=== PATIENT | male | born 1995 | race Caucasian/White ===

== ENCOUNTER 2019-05-21 00:06 | Emergency (ER) | payer OTHER, SELFPAY ==
[2019-05-21 00:12] VITALS: BP 148/97; PULSE 89; RESP 18; TEMP 36.7; O2SAT 97; BMI 20.3
--- NOTE | 2019-05-21 00:50 | ED_ITS ---
HPI - General Adult General: Chief complaint: General Medical Stated complaint: BLOOD EXPOSURE Time Seen by Provider: 05/21/19 00:09 History of Present Illness: HPI narrative: Needlestick right thumb at work tonight in ICU. Here for needlestick protocol complaint: needlestick Review of Systems General: Reports: 10 or more systems reviewed and unremarkable except in HPI and below (Needlestick right thumb) PFSH ED PFSH: Statuses (acute, chronic, etc) shown below reflect problem list status as previously entered and may not be historically accurate Social History Smoking and tobacco status: never smoked Physical Exam Narrative: EXAM NARRATIVE: Wound right thumb hard to visualize has been clean with soap and water Course Vital Signs: Vital signs: Vital Signs Temperature 98.1 F 05/21/19 00:12 Pulse Rate 89 05/21/19 00:12 Respiratory Rate 18 05/21/19 00:12 Blood Pressure 148/97 05/21/19 00:12 Pulse Oximetry 97 05/21/19 00:12 Discharge Plan Discharge Patient Disposition: Home, Self-Care Clinical Impression: Accidental hypodermic needlestick injury Condition: Stable Discharge Orders: Discharge Order (Routine); Ordered 05/21/19 Ordered By: Jose Mendez Referrals: Lizette Rodríguez MD [Primary Care Provider] - Discharge Diet: Usual diet Discharge Activity: Resume usual activity Patient Instructions: Needle Stick Injuries (ED) Activity Restrictions/Additional Instructions: Patient discharged back to work follow need to start needlestick protocol guidelines. Follow-up with employee health tomorrow patient chose not to do antiviral medication Coding Level of Care Code ED Brim Pouncing Machine Operator for Sudha Clarke
[2019-05-21 02:39] LABS: HIV 1 & 2 Antibody Non-Reactive (Non-Reactiv); HIV 1 & 2 Antigen Non-Reactive (Non-Reactiv)
[2019-05-21 17:07] LABS: Hepatitis A Antibody IgM. Non-Reactive (Nonreactive); Hepatitis B Core IgM Non-Reactive (Nonreactive); Hepatitis B Surface Antigen. Non-Reactive (Nonreactive); Hepatitis C Virus Antibody Non-Reactive (Nonreactive)
== END 2019-05-21 01:06 | disposition home or self-care (01) ==
PROVIDERS: Emergency Provider Nurse Practitioner Family; Family Provider Family Medicine; PCP Family Medicine
DX: S61.031A Puncture wound without foreign body of right thumb without damage to nail, initial encounter (principal); W46.0XXA Contact with hypodermic needle, initial encounter; Y92.239 Unspecified place in hospital as the place of occurrence of the external cause; Y99.0 Civilian activity done for income or pay
CPT/HCPCS: 80074; 99281

== ENCOUNTER → 2019-08-18 12:07 | Outpatient (BNVA) | payer OTHER, SELFPAY | PROVIDERS: Family Provider Family Medicine; PCP Family Medicine; Referring Provider Family Medicine; Visit Provider Family Medicine | DX: Z20.5 Contact with and (suspected) exposure to viral hepatitis (principal) | CPT/HCPCS: 80053; 86704; 86705; 86706; 87340 ==

== ENCOUNTER → 2020-01-06 11:32 | Outpatient (BNVA) | payer BC, SELFPAY | PROVIDERS: Family Provider Family Medicine; PCP Family Medicine; Visit Provider Registered Nurse | DX: Z72.52 High risk homosexual behavior (principal); K21.9 Gastro-esophageal reflux disease without esophagitis; A60.02 Herpesviral infection of other male genital organs; N48.9 Disorder of penis, unspecified | CPT/HCPCS: 87530 ==

== ENCOUNTER → 2020-01-13 15:33 | Outpatient (BNVA) | payer BC, SELFPAY | PROVIDERS: Family Provider Family Medicine; PCP Family Medicine | DX: Z51.81 Encounter for therapeutic drug level monitoring (principal); N48.5 Ulcer of penis | CPT/HCPCS: 80048; 86592 ==

== ENCOUNTER → 2020-03-21 10:45 | Outpatient (BNVA) | payer BC, SELFPAY | PROVIDERS: Family Provider Family Medicine; PCP Family Medicine; Visit Provider Registered Nurse | DX: Z20.2 Contact with and (suspected) exposure to infections with a predominantly sexual mode of transmission (principal); Z72.52 High risk homosexual behavior; Z91.89 Other specified personal risk factors, not elsewhere classified | CPT/HCPCS: 86592; 87806 ==

== ENCOUNTER → 2020-05-25 08:53 | Outpatient (BNVA) | payer BC, SELFPAY | PROVIDERS: Family Provider Family Medicine; PCP Family Medicine; Visit Provider Registered Nurse | DX: R30.0 Dysuria (principal) | CPT/HCPCS: 81000; 87086 ==

== ENCOUNTER 2020-12-26 11:43 | Outpatient (CLI) | payer BC, SELFPAY ==
--- NOTE | 2020-12-28 08:02 | ONC CON_ITS ---
Dr. Arita New Patient Note Patient: Lion Nj Unit #: [id number]: 1995 Dicatated By: Babak Arita M.D.Date of Visit: Dec 26, 2020 Onc MED New Patient/Consult Referring Physician: Tru Mclean Chief Complaint: Ependymoma. 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 He had presented with pain in the right posterior neck area and headache, beginning in May. In the early part of October he had presented to the emergency room with acute onset of nausea/vomiting. He was found on CT to have a large frontal lobe mass. His brain MRI showed a mass within the region of the right frontal horn which appeared to be arising from the intraventricular space, though with some associated invasion into the adjacent brain parenchyma. The mass measured 4.6 x 2.8 x 4 cm. There was associated vasogenic edema within the adjacent right frontal white matter. CT of the cervical spine showed no significant abnormality. On 10/31/2020 he underwent craniotomy with resection of the right frontal intraventricular tumor. Operative findings included an encapsulated mass within the right frontal horn of the lateral ventricle which was noted to extend down through the foramen of Monro. It was adherent loosely to the surrounding normal-appearing neural tissue. All visible abnormal tissue was removed. Pathology showed anaplastic supratentorial ependymoma, WH0 grade III. The tumor was noted to be ZFTA-RELA fusion-positive. 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 His postoperative course was complicated by left lower extremity deep vein thrombosis, for which he began anticoagulation with apixaban. He was subsequently transferred to rehab, where he had persistent headaches, ultimately requiring placement of ventriculoperitoneal shunt on 11/26/2020. He was discharged to rehab on 12/01/2020 and subsequently discharged home. He has been referred for postoperative radiation. At this point he continues to have limited activity, though he is able to ambulate with a walker or quad cane. His ECOG score is 3. He has good appetite. He does not have fever or night sweats. He initially had experienced some left lateral visual field loss, but that has improved. He has not had sore throat or difficulty swallowing. He has no shortness of breath, cough, or chest pain. He currently has no GI or complaints. He still has some pain in the right occipital/posterior neck area. He has no other joint or bone pain. He otherwise is not having headache now. He does not complain of dizziness. He still has paralysis of the left arm, but he does have some function with his left leg. Past Medical History: His medical history includes anxiety/depression, gastroesophageal reflux disease, and left lower extremity deep vein thrombosis. Past Surgical History: He underwent craniotomy with resection of right frontal lobe tumor on 10/31/2020, and he underwent right parietal ventriculoperitoneal shunt placement on 11/25/2020. Medications: Cholecalciferol 1 (10,000 Units) Tablet Oral daily, Colace Clear 1 Each (of 50 mg) Capsule Oral b.i.d., Eliquis 1 Tablet (of 5 mg) Oral b.i.d., Florastor 1 (250 mg) Capsule Oral daily, Keppra 1 Each (of 500 mg) Tablet Oral b.i.d., Mirtazapine 1 (7.5 mg) Tablet Oral at bedtime, Pantoprazole Sodium 2 Each (of 40 Tablet) Tablet, enteric coated Oral daily Allergies: No Known Allergies. Social History: Mr. Nj is single. He is employed as a registered nurse. He is a non-smoker. He does not drink alcohol. Family History: Both parents are living and in good health. Four sisters also are in good health. Review Of Symptoms: Constitutional - His energy is not great. He has limited activity. He is able to walk with assistance. His appetite is good and his weight is stable. He has no fever or night sweats. ECOG score is 3, Eyes - He had lateral field visual on the left, but it is improving, ENMT - No hearing loss or tinnitus. No sinus congestion/drainage. No mouth sores. No sore throat or difficulty swallowing, Hematologic/Lymphatic - No abnormal bruising or bleeding, Respiratory - No shortness of breath. No cough. No pleuritic pain or hemoptysis, Cardiovascular - No angina pain. No palpitations, Gastrointestinal - No nausea or vomiting. His acid reflux is adequately managed with medication. No diarrhea or constipation. No blood in the stool or black stools, Genitourinary (M) - No dysuria or hematuria. No urinary frequency. No urgency or incontinence, Musculoskeletal - He still has some pain in the right posterior neck area. No other joint or bone pain, Integumentary - No skin rash or other skin changes, Neurologic - His headaches are better. He does not complain of dizziness. He has no numbness/paresthesia. He has persistent left arm paralysis and there is some weakness in the left leg, Psychiatric - No anxiety. He does have some depression. He has difficulty sleeping. Vital Signs: Performed on Dec 26, 2020 12:24: 7, 4, 21.62, 1.93 sq.m, 72 in, 99 %, 110 /min (HIGH), 18 /min, 114/83 mm(hg), 99.7 F (HIGH), and 159.4 lbs (HIGH). Physical Examination: Constitutional - He appears to be in good general health, Eyes - Sclerae nonicteric. Conjunctivae clear, ENMT - No lesions noted in the oral cavity, Neck - No mass or thyromegaly, Hematologic/Lymphatic - No cervical, clavicular, or axillary adenopathy, Respiratory - Lungs are clear with good air movement bilaterally, Cardiovascular - Heart rhythm is regular. There is a mild tachycardia. There is no murmur, gallop, or rub noted, Abdomen - Soft. Liver and spleen are not enlarged. There is no abdominal mass or ascites noted and there is no inguinal adenopathy, Back/Spine - No spine or CVA tenderness noted, Extremities - No edema. There is no calf swelling. Dorsalis pedis pulses are palpable bilaterally, Integumentary - No rashes. No suspicious skin lesions noted, Neurologic - There is complete paralysis of the left arm. There is some weakness in the left leg. Problem List: 1. 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 2. Postoperative left lower extremity deep vein thrombosis. 3. GERD. 4. Anxiety/depression. Problems Addressed with this Encounter and Plan: 1. 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 He underwent craniotomy with complete gross resection of tumor on 10/30/2020. His postoperative MRI on 11/03/2020 showed mild residual enhancement along the anterior epididymal lining of the frontal horn of the lateral ventricle. With that finding, he has been recommended undergo postoperative radiation. Per NCCN guidelines, he will first need to complete staging with MRI of the spine. In the absence of any evidence of other involvement, he will then see Dr. Sin for the radiation. 2. His postoperative course was complicated by left lower extremity deep vein thrombosis. He is currently on anticoagulation with apixaban. It is uncertain to what extent the thrombosis may have been due to hypercoagulability associated with the tumor, as that would potentially impact recommendations for the duration of his anticoagulation. At a minimum, though, he will have 3-6 months of anticoagulation with full dose apixaban. Signed By: Babak Arita M.D. <<Signature on File>>
== END 2020-12-26 11:44 | disposition home or self-care (01) ==
LOC: ONCMED 11:49
PROVIDERS: PCP Registered Nurse; Visit Provider Internal Medicine Hematology & Oncology
DX: C71.5 Malignant neoplasm of cerebral ventricle (principal); I82.402 Acute embolism and thrombosis of unspecified deep veins of left lower extremity; K21.9 Gastro-esophageal reflux disease without esophagitis; F41.9 Anxiety disorder, unspecified; F32.9 Major depressive disorder, single episode, unspecified; Z79.01 Long term (current) use of anticoagulants; Z79.899 Other long term (current) drug therapy
CPT/HCPCS: 99205

== ENCOUNTER 2021-01-08 14:16 | Outpatient (CLI) | payer BC, SELFPAY ==
--- NOTE | 2021-01-08 14:19 | MR_ITS ---
WS: [id number] MRI CERVICAL SPINE with and without contrast. HISTORY: EPENDYMOMA COMPARISON: CT cervical spine 10/12/2020 Technique: Multiplanar, multisequence pre and post imaging of the cervical spine. Normal cervical alignment with no compression fracture or significant disc space narrowing. Signal within the cervical cord is normal. Visualized posterior fossa is unremarkable. Craniocervical junction, C1 and C2 relationship, odontoid process and soft tissues are normal. No enhancing masses throughout the cervical spine. C2-C3: Normal. C3-C4: Normal. C4-C5: Normal. C5-C6: Normal. C6-C7: Normal. C7-T1: Normal. Paraspinal soft tissue are normal. MR/MR cervical spine wo/w [id number] IMPRESSION: Normal MRI C-spine with and without contrast.
--- NOTE | 2021-01-08 14:22 | MR_ITS ---
WS: [id number] MRI THORACIC SPINE with and without contrast. HISTORY: EPENDYMOMA COMPARISON: None available. TECHNIQUE: Multiplanar sequences are performed in sagittal and axial planes. Study performed with and without contrast. Normal thoracic alignment. Vertebral body heights and disc space heights are normal. No signal abnorm alities in the cord or abnormal enhancement. No cord atrophy or enlargement. No epidural enhancement or cord enhancement. T1-2: Normal. T2-3: Normal. T3-4: Normal. T4-5: Tiny RIGHT paracentral disc protrusion. T5-6: Normal. T6-7: Normal. T7-8: Normal. T8-9: Normal. T9-10: Normal. T10-11: Normal. T11-12: Normal. MR/MR thoracic spine wo/w [id number] IMPRESSION: Negative MRI of thoracic spine with and without contrast. No evidence for metas tatic disease.
[2021-01-08] MEDS: gadobenate dimeglumine 20 mL vial IV (15:43)
== END 2021-01-08 14:17 | disposition home or self-care (01) ==
LOC: RADWPI 14:18
PROVIDERS: PCP Registered Nurse; Visit Provider Internal Medicine Medical Oncology
DX: C71.9 Malignant neoplasm of brain, unspecified (principal)
CPT/HCPCS: 72156; 72157; A9577

== ENCOUNTER 2021-01-10 14:18 | Outpatient (CLI) | payer BC, SELFPAY ==
--- NOTE | 2021-01-10 14:21 | MR_ITS ---
WS: [id number] MRI LUMBAR SPINE WITH AND WITHOUT CONTRAST. HISTORY: EPENDYMOMA COMPARISON: None available. TECHNIQUE: Sagittal and axial multisequence imaging is submitted. Sagittal and axial T1 fat sat seque nces post-MultiHance 17 cc IV. Mild curvature cervical thoracic spines. Mild straightening of the normal thoracic lordosis. Posterior alignment is normal. No signal abnormality within the cord or the conus. There is no enhanc ing within the cord or drop metastasis. Disc spaces and vertebral body heights are well-preserved. Conus terminates normally at L1-2 disc level. L1-L2: Normal. L2-L3: Normal. L3-L4: Normal. L4-L5: Mild ligamentum flavum hypertrophy and facet arthritis. L5-S1: Shallow central disc protrusion and small osteophytes. No stenosis. No contact on the nerve ro ots. Postcontrast sequences are negative for metastatic disease or additional ependymal tumors. MR/MR lumbar spine wo/w con [id number] IMPRESSION: Normal MRI lumbar spine. No enhancing lesions or metastatic lesions within the spine or thecal sac.
== END 2021-01-10 14:19 | disposition home or self-care (01) ==
LOC: RADSHAW 14:20
PROVIDERS: PCP Registered Nurse; Visit Provider Internal Medicine Medical Oncology
DX: C71.1 Malignant neoplasm of frontal lobe (principal)
CPT/HCPCS: 72158

== ENCOUNTER 2021-02-08 06:32 | Outpatient (RCR) | payer BC, SELFPAY ==
--- NOTE | 2021-01-11 | CT_ITS ---
Radiation Therapy Planning CT images; total exam DLP: 535.09 mGy-cm MTDD
--- NOTE | 2021-01-11 17:44 | N.ONRAD NP_ITS ---
Radiation Oncology New Patient Visit Patient: Lion Nj MR#: [id number] : 1995> Age: 25> Sex: Male> Dictated by: Dr. Kulwant Contreras Date of Service: 01/11/2021 Referring Physician(s) : Jairo Tripp Diagnosis: C71.1 - malignant neoplasm of frontal lobe, Diagnosed 12/26/2020 (active). Brain, right frontal intraventricular neoplasm, anaplastic ependymoma, WHO grade 3, Z FTA fusion-positive Radiotherapy to date: Summary > No prior radiation therapy. 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 He developed right posterior neck pain and posterior headaches in May of this year. Over time his symptoms progressed and in October he developed acute nausea and vomiting. Brain imaging revealed a mass in the frontal horn of the right lateral ventricle with probable invasion into the adjacent brain parenchyma. The mass was measured at 4.6 x 2.8 x 4 cm. He was referred to neurosurgery at [facility]. Dr. Mclean operated on him on 10/31/2020. During surgery the anterior horn was entered and tumor was clearly visible in the ventricle with a well-formed capsule. A pseudocapsule type of margin was noted laterally between the capsule of the tumor and the lateral wall of the ventricle. Medially there was no distinct border but the tumor tissue appeared abnormal in comparison to the adjacent neural tissue. Debulking was performed. Posteriorly the tumor was connected to a vascular structure at the posterior border of the foramen of Miles. That was resected and a portion of tumor was actually pulled out of the foramen of Miles. The internal wall of the third ventricle appeared normal. Surgery was tolerated well though Mr. Nj did have some visual symptoms and a left hemiparesis following surgery. The vision symptoms have resolved. He is getting physical therapy and the left hemiparesis is improving. He is ambulatory with a cane but still has little function of the left upper extremity. He did have to be taken back to surgery for placement of a ventriculoperitoneal shunt on 11/25/2020. That procedure was uncomplicated and Mr. Nj is now at home, continuing to undergo physical therapy. Mr. Nj has seen Dr. Arita. He is referred for evaluation and recommendations with regard to postoperative radiation. Current Medications: Acetaminophen, cholecalciferol, colace Clear, eliquis, florastor, hYDROcodone-Acetaminophen, keppra, mirtazapine, pantoprazole Sodium. Allergies: No Known Allergies Medical History: Anxiety/depression, gastroesophageal reflux disease, left lower extremity deep vein thrombosis. No history of collagen vascular disease. No previous radiation therapy. Surgical History: Craniotomy with resection of right frontal lobe tumor on 10/31/2020 and right parietal ventriculoperitoneal shunt placement on 11/25/2020. Family History: Father is alive. Mother is alive. Sister is alive. Sister is alive. Sister is alive. Sister is alive. Both parents are living and in good health. Four sisters also are in good health. Social History: Last screened on 01/11/2021 - Never smoked. Last screened on 01/11/2021 - Never drank. Current Complaints / Review of Systems: . Neurologic: Mild headaches, no nausea. He has severe weakness of the left upper extremity. He has mild weakness of the left leg. Eyes: He had some visual deficits following surgery but they have resolved. He wears glasses. No vision complaints. GI: No problems with chewing, swallowing, digestion, or bowel movements. Pulmonary: no trouble with breathing, cough, hemoptysis or chest discomfort. Cardiovascular: left leg DVT following surgery. He is on anticoagulation. No chest pain or cardiac complaints. : No dysuria, hematuria, pyuria, or difficulty with emptying the bladder. Musculoskeletal: No extremity or joint pain. Vital Signs: Performed on 01/11/2021 10:43 AM BMI - 21.944 kg/m2, Height - 72.00 in, Weight - 161.8 lbs, Temperature - 97.5 f, Pulse - 99 /min, Respiration - 18 /min, O2 Sat - 97 %, Pain - 3 and BP - 138/ 90 mm(hg). Physical Exam: General: Alert, oriented, no acute distress. Neurologic: No deficits of speech, coherence, critical thinking, or memory. He has normal cranial nerve function except for shoulder shrug on the left. In terms of the extremities, he has about a 50% loss of strength in the left lower extremity. On the left he does have difficulty with dorsiflexion and plantar flexion of the foot. Right lower extremity normal. The right upper extremity is normal in strength. The left upper extremity is almost completely nonfunctional. Certainly he can do nothing with the hand and has very little motion at the elbow. He walks with a cane and is stable. Lungs: Clear to auscultation with no rales rhonchi or wheezes. Heart: Regular rhythm. No murmur gallop or rub. Abdomen: No distention. No organomegaly or mass or tenderness. Bowel sounds normal. Extremities: See neurologic exam above. The left lower extremity which had a DVT is normal and nontender to palpation. There is no edema. Performance Status: 3 - Capable of only limited self-care, confined to bed or chair more than 50% of waking hours. (ECOG) Pathology: Primary, c71.1 - malignant neoplasm of frontal lobe, Diagnosed 12/26/2020 (active). Lab: Imaging: See HPI Impression: Mr. Nj is postop gross resection of a grade 3 ependymoma. His risk of recurrence without additional treatment is high. He is aware of that. We discussed the use of postoperative radiation to reduce the risk of recurrence. I reviewed a 6-1/2-week course of radiation, side effects, and possible complications. I discussed acute effects such as fatigue, skin reaction, hair loss, headaches, and nausea. We discussed the risk of neurologic injury. I pointed out that the treatment field will approach the area of the optic chiasm and optic nerves as well as the brainstem. I told him those structures will be contoured and we will limit the dose of radiation to them. In spite of those efforts, I did discuss that there is a risk of brain necrosis that could result in severe neurologic injury. Mr. Nj wishes to proceed with postoperative radiation as recommended. Plan: Simulation performed. His simulation CT was fused with his postoperative MR. The CT actually was adequate for the postoperative status of the brain. It was elected to fuse preop images with the simulation CT for contouring. Both the axial T1 and axial T2 flair images were reviewed. The axial T1 images were selected to be fused and used to assist with contouring. Signed by: 01/11/2021 5:43:05 PM <<Signature on File>> Time spent with patient: CPT Code: CPT Code:
--- NOTE | 2021-01-23 13:41 | ONCRAD TMN_ITS ---
Radiation Oncology Treatment Management Note Patient Name: Lion Nj Date of : 1995 Date of Service: 01/23/2021 Attending Physician: Rustam Sin M.D. 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 A right frontal craniotomy with a left ventriculostomy was performed on October 31, 2020. A gross total resection was accomplished. Post-operative MRI demonstrated persistent enhancement of the ependymal lining of the anterior margin of the frontal horn. The patient has received 1.8 Gy of a prescribed 59.8 Loja with an IMRT plan using a step and shoot treatment technique. Upon review of systems, he denied any neurological complaints. On physical examination, the patient weighed 165 lbs. His temperature was 98 ???F with a blood pressure of 131/98 mmHg. His pulse was 85 bpm and his respiratory rate was 18. Cranial nerves were intact. Continue post-operative partial brain radiotherapy as prescribed. Signed by: Dr. Rustam Sin 01/23/2021 1:40:15 PM
--- NOTE | 2021-01-30 13:31 | ONCRAD TMN_ITS ---
Radiation Oncology Treatment Management Note Patient Name: Lion Nj Date of : 1995 Date of Service: 01/30/2021 Attending Physician: Rustam Sin M.D. 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 A right frontal craniotomy with a left ventriculostomy was performed on October 31, 2020. A gross total resection was accomplished. Post-operative MRI demonstrated persistent enhancement of the ependymal lining of the anterior margin of the frontal horn. The patient has received 12.6 Gy of a prescribed 59.4 Loja with an IMRT plan using a step and shoot treatment technique. Upon review of systems, he denied new neurological complaints. On physical examination, the patient weighed 166 lbs. His temperature was 97.9 ???F with a blood pressure of 138/93 mmHg. His pulse was 72 bpm and his respiratory rate was 18. Cranial nerves were intact. Continue post-operative partial brain radiotherapy as planned. Signed by: Dr. Rustam Sin 01/30/2021 1:29:35 PM
--- NOTE | 2021-02-06 13:51 | ONCRAD TMN_ITS ---
Radiation Oncology Treatment Management Note Patient Name: Lion Nj Date of : 1995 Date of Service: 02/06/2021 Attending Physician: Rustam Sin M.D. 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 A right frontal craniotomy with a left ventriculostomy was performed on October 31, 2020. A gross total resection was accomplished. Post-operative MRI demonstrated persistent enhancement of the ependymal lining of the anterior margin of the frontal horn. The patient has received 21.6 Gy of a prescribed 59.4 Loja with an IMRT plan using a step and shoot treatment technique. Upon review of systems, he reported persistent nausea. On physical examination, the patient weighed 164 lbs. His temperature was 97.4 ???F with a blood pressure of 136/101 mmHg. His pulse was 80 bpm and his respiratory rate was 18. Cranial nerves were intact. Continue post-operative partial brain radiotherapy as prescribed. I will prescribe 4 mg Decadron for potential cerebral edema. Signed by: Dr. Rustam Sin 02/06/2021 1:49:10 PM
== END 2021-02-08 23:59 | disposition home or self-care (01) ==
LOC: ONCMED 06:32
PROVIDERS: PCP Registered Nurse; Referring Provider Internal Medicine Medical Oncology; Visit Provider Radiology Radiation Oncology
DX: Z51.0 Encounter for antineoplastic radiation therapy (principal); C71.1 Malignant neoplasm of frontal lobe; Z79.899 Other long term (current) drug therapy
CPT/HCPCS: 77300; 77301; 77334; 77336; 77338; 77386; 99205

== ENCOUNTER 2021-03-09 06:20 | Outpatient (RCR) | payer BC, SELFPAY ==
--- NOTE | 2021-02-13 13:35 | ONCRAD TMN_ITS ---
Radiation Oncology Treatment Management Note Patient Name: Lion Nj Date of : 1995 Date of Service: 02/13/2021 Attending Physician: Rustam Sin M.D. 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 A right frontal craniotomy with a left ventriculostomy was performed on October 31, 2020. A gross total resection was accomplished. Post-operative MRI demonstrated persistent enhancement of the ependymal lining of the anterior margin of the frontal horn. The patient has received 30.6 Gy of a prescribed 59.4 Loja with an IMRT plan using a step and shoot treatment technique. Upon review of systems, he reported improvement in the nausea. On physical examination, the patient weighed 167 lbs. His temperature was 97.6 ???F with a blood pressure of 143/101 mmHg. His pulse was 81 bpm and his respiratory rate was 18. Cranial nerves were intact. Continue post-operative partial brain radiotherapy as planned. I will decrease the Decadron dose to 2 mg daily. Signed by: Dr. Rustam Sin 02/13/2021 1:34:07 PM
--- NOTE | 2021-02-20 13:34 | ONCRAD TMN_ITS ---
Radiation Oncology Treatment Management Note Patient Name: Lion Nj Date of : 1995 Date of Service: 02/20/2021 Attending Physician: Rustam Sin M.D. 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 A right frontal craniotomy with a left ventriculostomy was performed on October 31, 2020. A gross total resection was accomplished. Post-operative MRI demonstrated persistent enhancement of the ependymal lining of the anterior margin of the frontal horn. The patient has received 39.6 Gy of a prescribed 59.4 Loja with an IMRT plan using a step and shoot treatment technique. Upon review of systems, he denied new neurological symptoms. On physical examination, the patient weighed 172 lbs. His temperature was 98.9 ???F with a blood pressure of 131/90 mmHg. His pulse was 78 bpm and his respiratory rate was 18. Cranial nerves were intact. Continue post-operative partial brain radiotherapy as prescribed. Signed by: Dr. Rustam Sin 02/20/2021 1:56:36 PM
--- NOTE | 2021-02-27 13:40 | ONCRAD TMN_ITS ---
Radiation Oncology Treatment Management Note Patient Name: Lion Nj Date of : 1995 Date of Service: 02/27/2021 Attending Physician: Rustam Sin M.D. 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 A right frontal craniotomy with a left ventriculostomy was performed on October 31, 2020. A gross total resection was accomplished. Post-operative MRI demonstrated persistent enhancement of the ependymal lining of the anterior margin of the frontal horn. The patient has received 45 Gy of a prescribed 59.4 Loja with an IMRT plan using a step and shoot treatment technique. Upon review of systems, he denied new neurological symptoms. On physical examination, the patient weighed 175 lbs. His temperature was 98.9 ???F and the blood pressure was 139/98 mmHg. His pulse was 78 bpm and his respiratory rate was 18. Cranial nerves were intact. Continue post-operative partial brain radiotherapy as planned. Signed by: Dr. Rustam Sin 02/27/2021 1:39:43 PM
--- NOTE | 2021-03-06 13:42 | ONCRAD TMN_ITS ---
Radiation Oncology Treatment Management Note Patient Name: Lion Nj Date of : 1995 Date of Service: 03/06/2021 Attending Physician: Rustam Sin M.D. 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 A right frontal craniotomy with a left ventriculostomy was performed on October 31, 2020. A gross total resection was accomplished. Post-operative MRI demonstrated persistent enhancement of the ependymal lining of the anterior margin of the frontal horn. The patient has received 54 Gy of a prescribed 59.4 Loja with an IMRT plan using a step and shoot treatment technique. Upon review of systems, he denied new neurological symptoms. On physical examination, the patient weighed 175 lbs. His temperature was 98.9 ???F and the blood pressure was 133/97 mmHg. His pulse was 73 bpm and his respiratory rate was 18. Cranial nerves were intact. Continue post-operative partial brain radiotherapy as prescribed. Signed by: Dr. Rustam Sin 03/06/2021 1:40:36 PM
--- NOTE | 2021-03-09 11:58 | N.ONRD TS_ITS ---
Radiation OncologyTreatment Summary Patient Name: Lion Nj Date of : 1995 Date of Service: 03/09/2021 Attending Physician: Rustam Sin M.D. 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 A right frontal craniotomy with a left ventriculostomy was performed on October 31, 2020. A gross total resection was accomplished. Post-operative MRI demonstrated persistent enhancement of the ependymal lining of the anterior margin of the frontal horn. Cranial radiotherapy was administered between the dates of January 22, 2021 through March 09, 2021. A prescribed dose of 59.4 Gy was delivered in 33 fractions encompassing 47 elapsed days. The post-operative cavity (including areas of enhancement and edema as delineated by MR) was treated with an intensity modulated radiotherapy plan with a step and shoot treatment technique. The plan required seven coplanar moffett and two non-coplanar ports. Gantry angles of 80???, 120???, 150???, 200???, 230???, 260???, and 290??? were designed with a collimator rotation spanning 0??? to 350???. The field sizes differed between a minimum of 9.5 cm x 8.6 cm to a maximum of 12.1 cm x 8.8 cm. The planned SSDs measured between 88.1 cm to 93.5 cm. The delivered monitor units for the referenced gantry angles were 102 MU, 91 MU, 100 MU, 83 MU, 80 MU, 97 MU, and 107 MU. An additional two non-coplanar ports were designed with gantry angles of 270??? and 310??? with a collimator rotation of 0???, A couch angle of 90??? was implemented. The non-coplanar portal moffett measured 11 cm x 7.8 cm and 11.5 cm x 7.8 cm with SSDs of 92.8 cm and 93.1 cm. The administered monitor units for the non-coplanar ports were 115 MU and 121 MU. All treatments were performed with the Pixifly linear accelerator and an isocentric technique. The dose was calculated by Anisotropic Analytic Algorithm. A photon energy of 6 MV was prescribed with the plan calculated to deliver 100% of the prescription dose to 95% of the planning target volume. The flake drier physician approved the plan. Signed by: Dr. Rustam Sin 03/09/2021 11:57:21 AM
== END 2021-03-11 23:59 | disposition home or self-care (01) ==
LOC: ONCMED 06:20
PROVIDERS: PCP Registered Nurse; Referring Provider Internal Medicine Medical Oncology; Visit Provider Radiology Radiation Oncology
DX: Z51.0 Encounter for antineoplastic radiation therapy (principal); C71.1 Malignant neoplasm of frontal lobe
CPT/HCPCS: 77014; 77336; 77386; 77427

== ENCOUNTER 2021-03-12 12:52 | Outpatient (CLI) | payer BC, SELFPAY ==
--- NOTE | 2021-03-12 12:59 | MRR_ITS ---
PROCEDURE INFORMATION: Exam: MR Head Without Contrast Exam date and time: 03/12/2021 12:59 PM Age: 25 years old Clinical indication: Device placement; Other: S/P crainiotomy; Prior surgery TECHNIQUE: Imaging protocol: MR of the head without contrast. COMPARISON: 1. CT head wo con* [id number] 11/26/2020 2:[address] head wo con* [id number] 11/24/2020 2:52:[address] head wo con* [id number] 11/10/2020 2:32:[address] head wo con* [id number] 11/08/2020 8:53:05 AM FINDINGS: Tubes, catheters and devices: A right parietal ventriculostomy catheter is again noted. The catheter passes through the splenium of the corpus callosum and the posterior body of the left lateral ventricle, terminating in the posterior left basal ganglia. The catheter does not pass through the right lateral ventricle. Brain: A surgical resection cavity and poor encephalic cyst is noted in the right frontal lobe. This communicates with the right lateral ventricle. Hemosiderin deposition is noted along the periphery of the cavity. Irregular linear and nodular enhancement is noted within the superior aspect of the cavity. This could represent residual/recurrent neoplasm and/or postoperative scarring. Increased T2/FLAIR signal surrounding the resection cavity may represent vasogenic edema and/or transependymal flow of CSF. This appears mildly improved from the previous exam. There is approximately 6 mm of leftward midline shift, slightly improved from the previous exam. Chronic encephalomalacia is noted in the right basal ganglia. Irregular nodular enhancement within this area is present. Residual/recurrent neoplasm is possible. Wallerian degeneration is seen in the right cerebral peduncle, midbrain, and kayla. An incidental developmental venous anomaly is noted in the right kamara radiata. There is no acute intracranial hemorrhage. No restricted diffusion is seen to suggest acute infarction. Of note, there is significant artifact involving the right cerebellar hemisphere and posterior right cerebral hemisphere due to the ventriculostomy catheter hub. Cerebral ventricles: Mild/moderate dilation of the right lateral ventricle appears slightly improved from the previous exam. The left lateral ventricle is decompressed. The 3rd ventricle is not dilated. Bones/joints: A right frontal craniotomy is present. Left frontal and right parietal mindy holes are also noted. Paranasal sinuses: Normal as visualized. No acute sinusitis. Mastoid air cells: Normal as visualized. No mastoid effusion. Orbital cavity: Unremarkable. Soft tissues: Unremarkable. MR/MR head wo/w con [id number] IMPRESSION: 1. Postoperative changes as discussed above. Although there are multiple prior head CTs available for comparison, a direct comparison to a previous MRI would be beneficial. 2. Irregular enhancement within the right frontal resection cavity and the right basal ganglia encephalomalacia. Residual/recurrent tumor is possible. Radiation Dose CTDIVOL = (mGy): DLP = (mGy-cm)
[2021-03-12] MEDS: gadobenate dimeglumine 20 mL vial IV (13:57)
== END 2021-03-12 12:53 | disposition home or self-care (01) ==
PROVIDERS: PCP Registered Nurse; Visit Provider Nurse Practitioner Family
DX: Z98.890 Other specified postprocedural states (principal); G93.89 Other specified disorders of brain
CPT/HCPCS: 70553; A9577

== ENCOUNTER 2021-03-30 06:40 | Outpatient (RCR) | payer BC, SELFPAY ==
--- NOTE | 2021-03-30 11:26 | ONCRAD EPV_ITS ---
Radiation Oncology Follow-Up Note Patient Name: Lion Nj Date of : 1995 Date of Service: 03/30/2021 Attending Physician: Rustam Sin M.D. Lion Nj returned to my office this morning for a routinely scheduled post-radiotherapy appointment. 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 A right frontal craniotomy with a left ventriculostomy was performed on October 31, 2020. A gross total resection was accomplished. Post-operative MRI demonstrated persistent enhancement of the ependymal lining of the anterior margin of the frontal horn. Cranial radiotherapy was administered between the dates of January 22, 2021 through March 09, 2021. A prescribed dose of 59.4 Gy was delivered in 33 fractions encompassing 47 elapsed days. On review of systems, the patient denied central nervous system symptoms. On physical examination, the patient weighed 173 pounds. The temperature was 96.6 ???F and the blood pressure was 128/90 mmHg. The pulse was 85 bpm and the respiratory rate was 18 breaths per minute. Neurological exam did not reveal new focal abnormalities. In summary, Mr. Nj returned for a routine post-radiotherapy follow-up. No sequelae from treatment were present. He will continue observation as scheduled with neurosurgery. Signed by: Dr. Rustam Sin 03/30/2021 11:24:00 AM
== END 2021-04-10 23:59 | disposition home or self-care (01) ==
LOC: ONCMED 06:40
PROVIDERS: PCP Registered Nurse; Referring Provider Internal Medicine Medical Oncology; Visit Provider Radiology Radiation Oncology
DX: C71.5 Malignant neoplasm of cerebral ventricle (principal); Z92.3 Personal history of irradiation
CPT/HCPCS: 99024

== ENCOUNTER → 2021-05-24 14:56 | Outpatient (BNVA) | payer BC, SELFPAY | PROVIDERS: PCP Registered Nurse; Visit Provider Registered Nurse | DX: I26.99 Other pulmonary embolism without acute cor pulmonale (principal); Z98.2 Presence of cerebrospinal fluid drainage device; R53.1 Weakness; F51.01 Primary insomnia; R63.0 Anorexia | CPT/HCPCS: 87486; 87581; 87633 ==

== ENCOUNTER 2021-05-30 14:47 | Outpatient (CLI) | payer BC, SELFPAY ==
--- NOTE | 2021-05-30 15:01 | MR_ITS ---
WS: [id number] MRI BRAIN WITH AND WITHOUT CONTRAST HISTORY: EPENDYMOMA OF BRAIN COMPARISON: Prior MRI 03/12/2022, 11/03/2020. TECHNIQUE: Multiplanar imaging performed through the brain with MultiHance 12 ml's IV. Patient has an existing RIGHT parietal ventriculostomy catheter which is unchanged in position as com pared to the prior study. Catheter appears to extend through the splenium of the corpus callosum and probably through the posterior horn of the LEFT lateral ventricle. SONOGRAPHER shunt does not enter the RIGHT lateral ventricle. The tip appears to terminate in the posterior LEFT basal ganglia. Similar to the p rior study. No change in position. 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 This lobulated porencephalic cyst communicates with the RIGHT lateral ventricle. The RIGHT la teral ventricle is dilated and does extend across the midline. Porencephalic cyst extends through the RIGHT frontal lobe to the cortex. On the prior examination there was linear enhancement within the p eriphery of the anterior most aspect of the porencephalic cyst. There was also mild enhancement and t hickening along the adjacent dura over the frontal lobe. This area of enhancement has resolved. No en hancement along the porencephalic cyst. There is still very slight persistent enhancement of the dura which has not progressed. This is not nodular enhancement and may be postoperative change. There is very slight enhancement remaining within the calvarium, this is probably in one of the mindy holes. No progression since the prior examination. The porencephalic cyst is increasing in size. There is mild progression of midline shift predominantl y secondary to the porencephalic cyst. There is 11 mm midline shift as compared to 8 on the prior exa mination. There is mass effect upon the third ventricle and LEFT lateral ventricle. There is mild dil atation of the RIGHT temporal horn. Increased T2 and FLAIR signal surrounding the porencephalic cyst has slightly increased. This may be transependymal flow of CSF. No acute infarct is identified. There is hemosiderin adjacent to the porencephalic cyst similar to th e prior exam. Small amount of increased T2 and FLAIR signal is again identified in the RIGHT kayla and midbrain and cerebral peduncle. Prior infarct with volume loss in the RIGHT basal ganglia is unchang ed. Again noted is a small venous angioma in the RIGHT kamara radiata. Dural venous sinuses are normal. Paranasal sinuses: Well aerated with no significant disease. Mastoid air cells: Normal. Calvarium and scalp: Multiple mindy holes are noted along the frontal lobes towards is vertex. MR/MR head wo/w con [id number] IMPRESSION: 1. Postoperative resection site in the RIGHT frontal lobe with a large porence phalic cyst is again identified. Previously described enhancement within the fr ontal lobe resection site has resolved. There is a stable mild enhancement in o ne of the mindy holes in the RIGHT frontal lobe which is unchanged. There is per sistent dural enhancement around the frontal lobe resection site but no nodular ity or progression. 2. There has been an increase in size of the porencephalic cyst since the prio r study with increasing midline shift and the RIGHT temporal horn has slightly increased in size since 03/12/2021. Midline shift is now 11 mm. The amount of va sogenic edema or transependymal flow CSF surrounding the postoperative cavity h as also increased. 3. SONOGRAPHER shunt catheter is unchanged in its course. SONOGRAPHER shunt catheter may need to be reevaluated as there has been a progression of midline shift and increase i n size of the porencephalic cyst. 4. No additional areas of abnormal enhancement.
[2021-05-30] MEDS: gadobenate dimeglumine 20 mL vial IV (16:44)
== END 2021-05-30 14:48 | disposition home or self-care (01) ==
LOC: RADSHAW 14:51
PROVIDERS: PCP Registered Nurse; Visit Provider Nurse Practitioner Family
DX: C71.9 Malignant neoplasm of brain, unspecified (principal); Z98.2 Presence of cerebrospinal fluid drainage device
CPT/HCPCS: 70553; A9577

== ENCOUNTER 2021-06-06 09:33 | Outpatient (CLI) | payer BC, SELFPAY ==
--- NOTE | 2021-06-08 08:16 | ONC FU_ITS ---
Dr. Arita Patient Follow-Up Note Patient: Lion Nj Unit #: [id number]: 1995 Dicatated By: Babak Arita M.D.Date of Visit:Jun 06, 2021 Onc Med Follow-up/Prog Note Chief Complaint: Ependymoma/thromboembolism. 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 He has associated thromboembolism. He had presented with pain in the right posterior neck area and headache, beginning in May. In the early part of October he had presented to the emergency room with acute onset of nausea/vomiting. He was found on CT to have a large frontal lobe mass. His brain MRI showed a mass within the region of the right frontal horn which appeared to be arising from the intraventricular space, though with some associated invasion into the adjacent brain parenchyma. The mass measured 4.6 x 2.8 x 4 cm. There was associated vasogenic edema within the adjacent right frontal white matter. CT of the cervical spine showed no significant abnormality. On 10/31/2020 he underwent craniotomy with resection of the right frontal intraventricular tumor. Operative findings included an encapsulated mass within the right frontal horn of the lateral ventricle which was noted to extend down through the foramen of Monro. It was adherent loosely to the surrounding normal-appearing neural tissue. All visible abnormal tissue was removed. Pathology showed anaplastic supratentorial ependymoma, WH0 grade III. The tumor was noted to be ZFTA-RELA fusion-positive. 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 His postoperative course was complicated by left lower extremity deep vein thrombosis, for which he began anticoagulation with apixaban. He was subsequently transferred to rehab, where he had persistent headaches, ultimately requiring placement of ventriculoperitoneal shunt on 11/26/2020. He was discharged to rehab on 12/01/2020 and subsequently discharged home. He had radiation oncology consultation here on 01/11/2021. He then underwent postoperative partial brain radiation, completed on 03/09/2021 to a total dose of 5940 cGy administered in 33 fractions. He tolerated it well. 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 There was communication with the right lateral ventricle. Irregular and nodular enhancement was noted in the superior aspect of the cavity. Increased T2 flair signal surrounding the resection cavity was thought to be consistent with a vasogenic edema and/or transependymal flow of CSF. There was slight improvement. There was approximately 6 mm leftward midline shift. There was chronic encephalomalacia noted in the right basal ganglia with irregular nodular enhancement noted. With those findings, he was followed on expectant management. On 05/17/2021 he was admitted to [facility] after presenting to the emergency room with pleuritic pain in the right chest. His CT pulmonary angiogram showed evidence of right lower lobe segmental pulmonary embolus with associated right lower lobe pulmonary infarction. There was no evidence of right heart strain. He had stopped the apixaban in April, having completed 6 months of treatment. At discharge he resumed anticoagulation with apixaban. Repeat head MRI on 05/30/2021 showed resolution of the previously described enhancement within the frontal lobe resection site. However, there was noted to be an increase in the size of the porencephalic cyst compared to the prior study with increasing midline shift, at that point measuring 11 mm. There was corresponding increase in the amount of vasogenic edema or transependymal CSF flow. The course of the FOOD SUPERVISOR shunt catheter appeared unchanged. Due to the recent pulmonary embolism, he was recommended to have any further neurosurgical procedure deferred for at least 6 weeks. He is seen for a follow-up visit. He indicates that during his recent hospitalization he had negative testing for COVID-19 infection, but during the week following that hospitalization he was confirmed to be positive. He has had improvement in the pleuritic pain since he has been on the apixaban. He still has a little shortness of breath with activity, but he says it is getting better. His cough also is better now. His energy is slowly coming back. He continues to have limited activity. ECOG score is 2. His main complaint is that he has had poor appetite and poor oral intake, but that actually has been going on for couple of months. By our scales his weight is down 11 pounds. He has not had fever or night sweats. He does not complain of sore mouth or throat. He has had nausea off and on. Bowel and bladder function remain adequate. He has no significant joint or bone pain. He still has a little bit of headache, but not like it was. He does not complain of dizziness. He has no numbness/paresthesia. He still has no function of the left arm. The left leg has gotten a little better. Medications: Acetaminophen 2 Tabminder (of 500 mg) Tablet Oral q 6 hours PRN, Cholecalciferol 1 (10,000 Units) Tablet Oral daily, Colace Clear 1 Each (of 50 mg) Capsule Oral b.i.d., Dexamethasone 1 Tablet (of 4 mg) Oral daily, Eliquis 1 Tablet (of 5 mg) Oral b.i.d., HYDROcodone-Acetaminophen 1 Tablet (of 5-325 mg) Tablet Oral q 4 to 6 hours PRN, Keppra 1 Each (of 500 mg) Tablet Oral b.i.d., Mirtazapine 1 (7.5 mg) Tablet Oral at bedtime, Ondansetron HCl 1 Tablet (of 4 mg) Oral q 4 hours, Pantoprazole Sodium 2 Each (of 40 Tablet) Tablet, enteric coated Oral daily Allergies: No Known Allergies. Vital Signs: Performed on Jun 06, 2021 10:05 Height - 72.00 in Weight - 148 lbs (LOW) BSA - 1.87 sq.m BMI - 20.07 Temperature - 98.7 F Pulse - 83 /min Respiration - 16 /min BP - 118/78 mm(hg) O2 Sat - 97 % Pain - 0 Fatigue - 4 Physical Examination: Constitutional - He appears somewhat weak generally, Eyes - Sclerae nonicteric. Conjunctivae clear, ENMT - There is very slight coating on the tongue. There are no other lesions noted in the oral cavity, Hematologic/Lymphatic - No cervical, clavicular, or axillary adenopathy, Respiratory - Lungs sound clear with good air movement bilaterally, Cardiovascular - Heart rhythm is regular. There is no murmur, gallop, or rub noted, Abdomen - Soft. Liver and spleen are not enlarged. There is no abdominal mass or ascites noted and there is no inguinal adenopathy, Extremities - No edema. There is no calf swelling or tenderness, Neurologic - There is persistent paralysis of the left arm. There is weakness in the left leg. Problem List: 1. 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 2. He has associated thromboembolism. 3. GERD. 4. Anxiety/depression. Problems Addressed with this Encounter and Plan: 1. 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 He underwent craniotomy with complete gross resection of tumor on 10/30/2020. His postoperative MRI on 11/03/2020 showed mild residual enhancement along the anterior epididymal lining of the frontal horn of the lateral ventricle. With that finding, he underwent postoperative partial brain radiation, completed on 03/09/2021 to a total dose of 5940 cGy administered in 33 fractions. He tolerated it well. His follow-up brain MRI on 05/31/2021 showed increase in the size of the porencephalic cyst within the right frontal lobe resection cavity. There was associated increased in the midline shift and increase in the amount of vasogenic edema or transependymal CSF flow. Due to the recent pulmonary embolism, he was recommended to defer any further neurosurgical procedure for least 6 weeks. In the meantime, he has had some ongoing problems with nausea and anorexia, and he has had associated weight loss. As such, I will have him restart dexamethasone at 4 mg twice daily for 3 days then decreasing to 4 mg daily. If he is showing symptomatic improvement, the dexamethasone will then be further tapered to the lowest effective dosage. 2. He has associated thromboembolism, which included left lower extremity deep vein thrombosis following his initial surgery and subsequent pulmonary embolism in May 2021. He will continue anticoagulation with apixaban indefinitely. Signed By: Babak Arita M.D. <<Signature on File>>
== END 2021-06-06 09:34 | disposition home or self-care (01) ==
LOC: ONCMED 09:36
PROVIDERS: PCP Registered Nurse; Visit Provider Internal Medicine Medical Oncology
DX: C71.9 Malignant neoplasm of brain, unspecified (principal); I74.9 Embolism and thrombosis of unspecified artery; K21.9 Gastro-esophageal reflux disease without esophagitis; F41.8 Other specified anxiety disorders; Z79.01 Long term (current) use of anticoagulants; Z79.891 Long term (current) use of opiate analgesic
CPT/HCPCS: 99214

== ENCOUNTER 2021-08-22 09:31 | Outpatient (CLI) | payer BC, SELFPAY ==
[2021-08-22 09:59] LABS: Basophils % 0.2 %; Eosinophils # 0.2 10^3/uL (0.0-0.8); Eosinophils % 3.2 %; Hematocrit 44.7 % (42.0-52.0); Hemoglobin 15.8 g/dL (11.7-16.6); Lymphocytes # 1.7 10^3/uL (0.8-4.8); Lymphocytes % 34.3 %; Mean Corpuscular HGB Conc 35.3 g/dL (30.0-36.0); Mean Corpuscular Hemoglobin 29.3 pg (28.0-34.0); Mean Corpuscular Volume 82.8 fl (80-94); Mean Platelet Volume 10.4 fL (7.4-10.4); Monocytes # 0.4 10^3/uL (0.2-0.9); Monocytes % 8.4 %; Neutrophils # 2.66 10^3/uL (1.8-7.7); Neutrophils % 53.5 %; Nucleated Red Blood Cells % 0 %; Platelet Count 201 10^3/cmm (130-400); Red Cell Distribution Width 12.3 % (12.1-15.1)
[2021-08-22 10:09] LABS: Alanine Aminotransferase 39 U/L (0-41); Albumin Level 4.7 g/dL (3.5-5.2); Alkaline Phosphatase 155 IU/L (40-130); Aspartate Amino Transferase 22 U/L (0-40); Blood Urea Nitrogen 16 mg/dL (6-20); Carbon Dioxide 25 mmol/L (22-29); Chloride 107 mmol/L (98-107); Globulin 2.7 g/dL (1.3-4.6); Glomerular Filtration Rate 117.8 mL/min (90-130); Glucose 95 mg/dL (65-115); Osmolality Calculated 299 mOsm/kg (285-295); Sodium 144 mmol/L (136-145); Total Bilirubin 0.4 mg/dL (0.15-1.2); Total Protein 7.4 g/dL (6.6-8.7)
--- NOTE | 2021-08-26 08:11 | ONC FU_ITS ---
Dr. Arita Patient Follow-Up Note Patient: Lion Nj Unit #: [id number]: 1995 Dicatated By: Babak Arita M.D.Date of Visit:Aug 22, 2021 Onc Med Follow-up/Prog Note Chief Complaint: Ependymoma/thromboembolism. 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 He has associated thromboembolism. He had presented with pain in the right posterior neck area and headache, beginning in May. In the early part of October he had presented to the emergency room with acute onset of nausea/vomiting. He was found on CT to have a large frontal lobe mass. His brain MRI showed a mass within the region of the right frontal horn which appeared to be arising from the intraventricular space, though with some associated invasion into the adjacent brain parenchyma. The mass measured 4.6 x 2.8 x 4 cm. There was associated vasogenic edema within the adjacent right frontal white matter. CT of the cervical spine showed no significant abnormality. On 10/31/2020 he underwent craniotomy with resection of the right frontal intraventricular tumor. Operative findings included an encapsulated mass within the right frontal horn of the lateral ventricle which was noted to extend down through the foramen of [place]. It was adherent loosely to the surrounding normal-appearing neural tissue. All visible abnormal tissue was removed. Pathology showed anaplastic supratentorial ependymoma, WH0 grade III. The tumor was noted to be ZFTA-RELA fusion-positive. 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 His postoperative course was complicated by left lower extremity deep vein thrombosis, for which he began anticoagulation with apixaban. He was subsequently transferred to rehab, where he had persistent headaches, ultimately requiring placement of ventriculoperitoneal shunt on 11/26/2020. He was discharged to rehab on 12/01/2020 and subsequently discharged home. He had radiation oncology consultation here on 01/11/2021. He then underwent postoperative partial brain radiation, completed on 03/09/2021 to a total dose of 5940 cGy administered in 33 fractions. He tolerated it well. 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 There was communication with the right lateral ventricle. Irregular and nodular enhancement was noted in the superior aspect of the cavity. Increased T2 flair signal surrounding the resection cavity was thought to be consistent with a vasogenic edema and/or transependymal flow of CSF. There was slight improvement. There was approximately 6 mm leftward midline shift. There was chronic encephalomalacia noted in the right basal ganglia with irregular nodular enhancement noted. With those findings, he was followed on expectant management. On 05/17/2021 he was admitted to [facility] after presenting to the emergency room with pleuritic pain in the right chest. His CT pulmonary angiogram showed evidence of right lower lobe segmental pulmonary embolus with associated right lower lobe pulmonary infarction. There was no evidence of right heart strain. He had stopped the apixaban in April, having completed 6 months of treatment. At discharge he resumed anticoagulation with apixaban. During that hospitalization he had negative testing for COVID-19 infection, but during the week following that hospitalization he was confirmed to be positive. Repeat head MRI on 05/30/2021 showed resolution of the previously described enhancement within the frontal lobe resection site. However, there was noted to be an increase in the size of the porencephalic cyst compared to the prior study with increasing midline shift, at that point measuring 11 mm. There was corresponding increase in the amount of vasogenic edema or transependymal CSF flow. The course of the [employer] shunt catheter appeared unchanged. Due to the recent pulmonary embolism, he was recommended to have any further neurosurgical procedure deferred for at least 6 weeks. At his follow-up visit on 06/06/2021 he complained of having poor appetite and his weight was down 11 pounds. At that point I did have him restart dexamethasone. He ultimately was able to undergo his shunt revision, and he was able to taper off the dexamethasone. He has continued anticoagulation with apixaban. He is seen for a follow-up visit. He has been feeling okay. He says he gets fatigued pretty easily, but he is up and around. His ECOG score is 2. He has good appetite now. His weight has increased 9 pounds since May. He does not have fever or night sweats. He has not had sore mouth or throat. He does not complain of cough, and he has not been having shortness of breath or chest pain. He currently has no GI or complaints. He has no significant joint or bone pain. He does have headaches daily, managed adequately with [place]. Medications: Acetaminophen 2 Tabminder (of 500 mg) Tablet Oral q 6 hours PRN, Cholecalciferol 1 (10,000 Units) Tablet Oral daily, Colace Clear 1 Each (of 50 mg) Capsule Oral b.i.d., Dexamethasone 1 Tablet (of 4 mg) Oral daily, Eliquis 1 Tablet (of 5 mg) Oral b.i.d., FLUoxetine HCl 1 Tablet Oral daily, HYDROcodone-Acetaminophen 1 Tablet (of 5-325 mg) Tablet Oral q 4 to 6 hours PRN, Keppra 1 Each (of 500 mg) Tablet Oral b.i.d., Mirtazapine 1 (7.5 mg) Tablet Oral at bedtime, Ondansetron HCl 1 Tablet (of 4 mg) Oral q 4 hours, Pantoprazole Sodium 2 Each (of 40 Tablet) Tablet, enteric coated Oral daily Allergies: Percocet Vital Signs: Performed on Aug 22, 2021 11:44 Height - 72.00 in Weight - 157.2 lbs (HIGH) BSA - 1.92 sq.m BMI - 21.32 Temperature - 98.5 F Pulse - 99 /min Respiration - 16 /min BP - 117/90 mm(hg) O2 Sat - 98 % Pain - 4 Fatigue - 6 Physical Examination: Constitutional - He looks pretty good generally, Eyes - Sclerae nonicteric. Conjunctivae clear, ENMT - No lesions noted in the oral cavity, Hematologic/Lymphatic - No cervical, clavicular, or axillary adenopathy, Respiratory - Lungs sound clear with good air movement bilaterally, Cardiovascular - Heart rhythm is regular. There is no murmur, gallop, or rub noted, Abdomen - Soft. Liver and spleen are not enlarged. There is no abdominal mass or ascites noted and there is no inguinal adenopathy, Extremities - No edema. There is no calf swelling or tenderness, Neurologic - There is paralysis of the left arm and there is weakness in the left leg. Lab/Imaging: Test performed on Aug 22, 2021 09:44 Sodium 144 mmol/L Potassium 4.0 mmol/L Chloride 107 mmol/L CO2 25 mmol/L Anion Gap 16.0 BUN 16 mg/dL Creatinine 0.8 mg/dL Cr Clearance (Est) 142.36 mL/min eGFR 117.8 mL/min Glucose 95 mg/dL Osmolality - Calculated 299 mOsm/kg Calcium 10.0 mg/dL Protein, Total 7.4 g/dL Albumin 4.7 g/dL Globulin 2.7 g/dL Bilirubin, Total 0.4 mg/dL ALT (SGPT) 39 U/L AST (SGOT) 22 U/L Alkaline Phosphatase 155 IU/L WBC 5.0 10 3/uL RBC 5.40 10 6/uL HGB 15.8 g/dL HCT 44.7 % MCV 82.8 fl MCH 29.3 pg MCHC 35.3 g/dL RDW 12.3 % Platelet Count 201 10 3/cmm MPV 10.4 fL Neutrophils 2.66 10 3/uL Lymphocytes 1.7 10 3/uL Monocytes 0.4 10 3/uL Eosinophils 0.2 10 3/uL Basophils 0.0 10 3/uL Neutrophil % 53.5 % Lymphocyte % 34.3 % Monocyte % 8.4 % Eosinophil % 3.2 % Basophils % 0.2 % NRBC % 0 % Problem List: 1. 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 2. He has associated thromboembolism. 3. GERD. 4. Anxiety/depression. Problems Addressed with this Encounter and Plan: 1. 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 He underwent craniotomy with complete gross resection of tumor on 10/30/2020. His postoperative MRI on 11/03/2020 showed mild residual enhancement along the anterior epididymal lining of the frontal horn of the lateral ventricle. With that finding, he underwent postoperative partial brain radiation, completed on 03/09/2021 to a total dose of 5940 cGy administered in 33 fractions. He tolerated it well. His follow-up brain MRI on 05/31/2021 showed increase in the size of the porencephalic cyst within the right frontal lobe resection cavity. There was associated increased in the midline shift and increase in the amount of vasogenic edema or transependymal CSF flow. Due to the recent pulmonary embolism, he was recommended to defer any further neurosurgical procedure for least 6 weeks. He ultimately was able to undergo the shunt revision, and he was unable to taper off dexamethasone. He continues regular follow-up with his neurosurgeon. 2. He has associated thromboembolism, which included left lower extremity deep vein thrombosis following his initial surgery and subsequent pulmonary embolism in May 2021. He has had no further thromboembolism while on treatment with apixaban, which he will continue indefinitely. At this point he is recommended to continue regular follow-up with his primary care provider. I will see him again as needed. Signed By: Babak Arita M.D. <<Signature on File>>
== END 2021-08-22 09:32 | disposition home or self-care (01) ==
PROVIDERS: PCP Registered Nurse; Visit Provider Internal Medicine Medical Oncology
DX: C71.5 Malignant neoplasm of cerebral ventricle (principal); Z92.3 Personal history of irradiation; G93.0 Cerebral cysts; Z79.52 Long term (current) use of systemic steroids; Z86.711 Personal history of pulmonary embolism; Z86.718 Personal history of other venous thrombosis and embolism; Z79.01 Long term (current) use of anticoagulants
CPT/HCPCS: 36415; 80053; 85025; 99214

== ENCOUNTER 2021-11-13 14:36 | Outpatient (RCR) | payer BC, SELFPAY | END 2021-12-09 23:59 | disposition home or self-care (01) | LOC: SOT 14:36 | PROVIDERS: PCP Registered Nurse; Referring Provider Registered Nurse; Visit Provider Registered Nurse | DX: G89.3 Neoplasm related pain (acute) (chronic) (principal); R53.1 Weakness | CPT/HCPCS: 97112; 97167 ==

== ENCOUNTER 2021-11-23 07:54 | Oncology outpatient (recurring) (ONCR) | payer BC, SELFPAY ==
--- NOTE | 2021-11-23 08:24 | ONCRAD EPV_ITS ---
Radiation Oncology Follow-Up Note Patient Name: Lion Nj Date of : 1995 Date of Service: 11/23/2021 Attending Physician: Rustam Sin M.D. Lion Nj returned to my office this morning to discuss treatment options. 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 A right frontal craniotomy with a left ventriculostomy was performed on October 31, 2020. A gross total resection was accomplished. Post-operative MRI demonstrated persistent enhancement of the ependymal lining of the anterior margin of the frontal horn. Cranial radiotherapy was administered between the dates of January 22, 2021 through March 09, 2021. A prescribed dose of 59.4 Gy was delivered in 33 fractions encompassing 47 elapsed days. An MRI of the brain ordered on November 16, 2021 described a new nodular enhancement within the right genu of the corpus collosum. On review of systems, the patient denied any new central nervous system symptoms. On physical examination, the patient weighed 145 pounds. The temperature was 98.4 ???F and the blood pressure was 117/77 mmHg. The pulse was 115 bpm and the respiratory rate was 16 breaths per minute. Neurological exam did not reveal new focal abnormalities. In summary, Mr. Nj returned to discuss treatment options for recurrent disease. I will refer him to [facility] for possible neurosurgical intervention or re-irradiation. Signed by: Dr. Rustam Sin 11/23/2021 8:22:49 AM
== END 2021-12-09 23:59 | disposition home or self-care (01) ==
LOC: ONCMED 07:58
PROVIDERS: PCP Registered Nurse; Visit Provider Radiology Radiation Oncology
DX: C71.5 Malignant neoplasm of cerebral ventricle (principal)
CPT/HCPCS: 99213

== ENCOUNTER 2022-02-15 06:00 | Outpatient (RCR) | payer BC, SELFPAY | END 2022-03-11 23:59 | disposition home or self-care (01) | LOC: SOT 06:00 | PROVIDERS: PCP Registered Nurse; Visit Provider Registered Nurse | DX: G81.94 Hemiplegia, unspecified affecting left nondominant side (principal) | CPT/HCPCS: 97110; 97140; 97166 ==

== ENCOUNTER 2022-03-12 06:00 | Outpatient (RCR) | payer BC, SELFPAY | END 2022-04-10 23:59 | disposition home or self-care (01) | LOC: SOT 06:00 | PROVIDERS: PCP Registered Nurse; Visit Provider Registered Nurse | DX: G81.94 Hemiplegia, unspecified affecting left nondominant side (principal); R53.1 Weakness | CPT/HCPCS: 97110; 97140; A4565 ==